=== PATIENT | female | born 1990 ===

== ENCOUNTER 2017-10-24 15:00 | Inpatient (IN) | payer OTHER ==
[~2017-10-24] VITALS: Ht 167.6 cm; Wt 70.3 kg
[2017-10-28] MEDS ORDERED: PRENATAL 19 TA1 EACH PO (07:40)
[2017-10-28] MEDS ORDERED: AMPICILLIN SODIU2 GM IV (07:41)
[2017-10-30] MEDS ORDERED: RHOGAM ULTR1500 UNIT IM (09:01)
== END 2017-10-30 14:27 | disposition home or self-care (01) | DRG 775 ==
LOC: LDR 10-28 06:05 → OB/GYN 10-28 06:05
PROC: 10D07Z6 Extraction of Products of Conception, Vacuum, Via Natural or Artificial Opening (ICD-10-PCS; principal; 2017-10-28)
PROC: 0KQM0ZZ Repair Perineum Muscle, Open Approach (ICD-10-PCS; 2017-10-28)
PROC: 0UQC7ZZ Repair Cervix, Via Natural or Artificial Opening (ICD-10-PCS; 2017-10-28)
PROC: 10907ZC Drainage of Amniotic Fluid, Therapeutic from Products of Conception, Via Natural or Artificial Opening (ICD-10-PCS; 2017-10-28)
PROC: 4A1HXCZ Monitoring of Products of Conception, Cardiac Rate, External Approach (ICD-10-PCS; 2017-10-28)
DX: O70.1 Second degree perineal laceration during delivery (principal); Z37.0 Single live birth; O71.3 Obstetric laceration of cervix; O99.824 Streptococcus B carrier state complicating childbirth; O99.02 Anemia complicating childbirth; Z3A.40 40 weeks gestation of pregnancy